=== PATIENT | male | born 1940 | race Caucasian/White ===

== ENCOUNTER 2021-01-06 21:06 | Emergency (ER) | payer MEDICARE ==
[~2021-01-06 21:06] MED LIST: ALBUTEROL1.25 MG/3 INH; AMITIZA24 MCG PO; BUMEX 1MG TABLET1 MG GT; CEFDINIR300 MG PO; CYMBALTA60 MG PO; DITROPAN XL10 MG PO; DURAGESIC 50 MCG1 EA TP; DURAGESIC1 EAC1 TD; ENTRESTO 49 MG1 EACH PO; ENTRESTO 97 MG1 EACH PO; FLOMAX 0.4 MG0.4 MG PO; FLONASE 0.05% N16 GM; K-DUR TAB 20 M20 MEQ PO; LASIX40 MG PO; LEVEMIR100 UNIT/1 SQ; LYRICA50 MG PO; NORCO 10-325 T1 EACH PO; NORCO 7.5-3251 EACH PO; PRADAXA 150 MG150 MG PO; PRADAXA150 MG PO; PROSCAR5 MG PO; PROTONIX40 MG PO; REGLAN5 MG PO; TOPROL XL25 MG PO; ZOCOR20 MG PO; ZYLOPRIM 300 M300 MG PO
[2021-01-07 02:46] LABS: HEMOGLOBIN 13.5 gm/dl (14.0-17.5); RED BLOOD COUNT 4.66 M/UL (4.20-5.50); WHITE BLOOD COUNT 6.6 K/UL (4.5-11.0)
[2021-01-07 03:10] LABS: BUN/CREATININE RATIO 24 (0-10)
[2021-01-07] MEDS ORDERED: COLACE 100MG C100 MG PO (03:44)
== END 2021-01-07 04:45 | disposition home or self-care (01) ==
LOC: ER1 21:06
PROVIDERS: Physician Assistant
DX: M51.36 Other intervertebral disc degeneration, lumbar region (principal); K59.00 Constipation, unspecified; G89.4 Chronic pain syndrome; M79.604 Pain in right leg; J44.9 Chronic obstructive pulmonary disease, unspecified; E11.9 Type 2 diabetes mellitus without complications; Z79.899 Other long term (current) drug therapy; Z90.49 Acquired absence of other specified parts of digestive tract
CPT/HCPCS: 71045; 72131; 72192; 80053; 82550; 82553; 83874; 84484; 85025; 99284

== ENCOUNTER 2021-11-13 16:42 | Emergency (ER) | payer MEDICARE ==
[~2021-11-13 16:42] MED LIST changes: +COLACE 100MG C100 MG PO
[2021-11-13 18:01] LABS: HEMOGLOBIN 11.5 gm/dl (14.0-17.5); RED BLOOD COUNT 4.1 M/UL (4.20-5.50)
[2021-11-13 18:27] LABS: BUN/CREATININE RATIO 20 (0-10)
[2021-11-13] MEDS ORDERED: OMNICEF 300 MG300 MG PO (18:55)
== END 2021-11-13 19:45 | disposition home or self-care (01) ==
LOC: ER1 16:42
PROVIDERS: Physician Assistant
DX: I11.0 Hypertensive heart disease with heart failure (principal); N39.0 Urinary tract infection, site not specified; M79.662 Pain in left lower leg; I50.9 Heart failure, unspecified; E78.5 Hyperlipidemia, unspecified; J44.9 Chronic obstructive pulmonary disease, unspecified; Z90.49 Acquired absence of other specified parts of digestive tract
CPT/HCPCS: 71045; 73502; 73564; 80053; 81001; 82550; 82553; 83880; 84484; 85025; 93005; 99284